=== PATIENT | male | born 1970 | race Caucasian/White ===

== ENCOUNTER 2018-02-28 18:24 | Emergency (ER) | payer MEDICAID, MEDICARE ==
[~2018-02-28] VITALS: Ht 185.4 cm; Wt 68.2 kg
[~2018-02-28 18:24] MED LIST: DIVA-78 PO; OLAN10TA3 PO
[2018-03-01 02:15] VITALS: BP 108/63
== END 2018-03-01 02:55 | disposition home or self-care (01) ==
LOC: EMS 18:25
DX: F25.9 Schizoaffective disorder, unspecified (principal); F17.210 Nicotine dependence, cigarettes, uncomplicated; Z79.899 Other long term (current) drug therapy
CPT/HCPCS: 99285